=== PATIENT | female | born 1995 | race Caucasian/White ===

== ENCOUNTER 2017-03-19 03:26 | Inpatient (IN) | payer OTHER ==
--- NOTE | ~2017-03-19 | PA ---
Unit #: [id number] #: [id number] Patient: SID VEGAS [id number] [facility] [address] [place] [address] [id number] MR#: [id number] NAME: SID VEGAS ROOM: P201 Age: 22 Sex: F Admission Date: 03/19/2017 : 1995 Date of Assessment: 03/19/2017 Attending Physician: Yariel Miller M.D. Admitting Physician: Yariel Miller M.D. Primary Care Physician: Primary Care Physician No PSYCHIATRIC ASSESSMENT DATE OF SERVICE 03/19/2017. IDENTIFYING DATA Ms. Vegas is a 22-year-old single white female, who is a resident of [place], [place], and was brought to the hospital accompanied by her mother. CHIEF COMPLAINT "I overdosed on heroin last night." HISTORY OF PRESENT ILLNESS Ms. Vegas is a 22-year-old white female, who was brought to the hospital by her mother stating that she has been homeless, started to overdose on the heroin and that she overdosed on heroin last night, having to get medical attention and was Narcained and she felt that she needed help with her addiction to heroin and reports that she started to go to a rehab or chemical dependency treatment; however, she was unable to make it and continues to use heroin and ended up overdosing and was taken to the hospital and was given Narcan and was medically cleared and was in acute detox with a COWS score of 13 indicating significant withdrawal symptoms, and as such, a recommendation for inpatient level of care for chemical dependency treatment was made as the patient does report wanting to get help. The patient's mother reports that the patient does not like coming around when she is using heroin and that she has been sick due to her tooth issue and mother is concerned over the fact that the patient has been Narcained four times in the last 4 months due to constantly overdosing on heroin and appears to be a significant danger to self and therefore recommendation for inpatient level of care for safety and stabilization was made. The patient does report increasing depression, anxiety, irritability, restlessness, isolating herself, unable to function, and having significant consequences of her addiction and continues to overdose and goes into respiratory failure and having being Narcained 4 times in the last 4 months. SUBSTANCE ABUSE HISTORY The patient has an extensive history of substance abuse and dependence including alcohol, cannabis, cocaine, opioids, and benzodiazepines, and currently opioids, particularly IV heroin has been her drug of choice. She reports that she has been using a gram of IV heroin on a regular basis. PAST PSYCHIATRIC HISTORY The patient has had a history of chemical dependency treatment at Unit #: [id number] #: [id number] Patient: SID VEGAS different facilities, and review of the medical records indicate that currently she is not active in any treatment program, is not seeing a psychiatrist, and is not taking any psychotropic medications. PAST MEDICAL HISTORY Infection in her teeth. ALLERGIES Codeine. PERSONAL AND SOCIAL HISTORY A 22-year-old white female, who reports that she is single, unemployed, and currently describes herself to be homeless and has poor social support system. MENTAL STATUS EXAMINATION Young white female, who was casually dressed with fair personal hygiene, appears to be in no acute distress or discomfort. She was awake and alert on interaction with intact orientation to time, place, and person. Her mood was anxious and depressed with a congruent affect. Her speech was slow and restricted in content. Her thought processes were disorganized with some looseness of associations. She denies any current suicidal or homicidal ideations and also denies any auditory or visual hallucinations. Her insight and judgment remain significantly impaired. DIAGNOSTIC IMPRESSION Psychiatric: Opioid dependence, moderate, in acute withdrawals and opioid-induced mood disorder. Medical: Infection in her teeth. Stressors: Moderate psychosocial stressors. TREATMENT PLAN 1. The patient has presented with a history of mood disorder and substance abuse and has been decompensating and will need inpatient hospitalization for detoxification, safety, and stabilization. We will start her back on her home medications. We will adjust the medications and monitor response. 2. Supportive therapy was provided to the patient. 3. Safe, structured, and nourishing environment will be provided. ESTIMATED LENGTH OF STAY 5 to 7 days. ABILITY TO HELP SELF Limited. WILLINGNESS TO HELP SELF The patient appears to be willing to help self. STRENGTHS 1. Communicative. 2. Cooperative. PROBLEMS 1. Chronic chemical dependency. 2. Chronic dysphoric symptoms. 3. Poor social support system. DISCHARGE CRITERIA Unit #: [id number] #: [id number] Patient: SID VEGAS This will be contingent upon the patient's ability to go through detox without having any significant withdrawal symptoms and her ability to stay safe to herself, particularly after discharge from the hospital. Dictated by... Cristy Mcpherson/ray TD: 03/19/2017 13:44 JOB #: [id number] PSYCHIATRIC ASSESSMENT Page 1 of 1 X Yariel Miller MD X PSYCHIATRIC ASSESSMENT
--- NOTE | ~2017-03-19 | DS ---
Unit #: [id number] #: [id number] [facility]: [facility] VEGAS [id number] [facility] [place] [address] [id number] MR#: [id number] NAME: SID VEGAS ROOM: [facility] Age: 22 Sex: F Admission Date: 03/19/2017 : 1995 Discharge Date: 03/22/2017 Attending Physician: Yariel Miller M.D. Primary Care Physician: Primary Care Physician No DISCHARGE SUMMARY IDENTIFICATION DATA Ms. Vegas is a 22-year-old single white female who is a resident of [place], [place], and was brought to the hospital accompanied by her mother. DISCHARGE DIAGNOSES PSYCHIATRIC: Opioid dependence, moderate, in acute withdrawals. Opioid-induced mood disorder. MEDICAL: Infection in her teeth. STRESSORS: Moderate psychosocial stressors. HISTORY OF PRESENT ILLNESS Same as in initial psychiatric evaluation. PAST PSYCHIATRIC HISTORY Same as in initial psychiatric evaluation. PAST MEDICAL HISTORY Same as in initial psychiatric evaluation. HOSPITAL COURSE The patient was admitted to the adult chemical dependency unit at [facility] jonna Gilliam and was oriented to the hospital environment. Routine p.r.n. medications were initiated, and she was started on the detox protocol and was closely monitored. She was taking the medications regularly and was tolerating them fairly well and able to show decent therapeutic response and was willing to continue treatment on outpatient basis. As such it was decided that she will be discharged home. We will continue treatment on outpatient basis. DISCHARGE MEDICATIONS None. CONDITION AT DISCHARGE Stable. PROGNOSIS Fair. Dictated by... Yariel Miller M.D. Unit #: [id number] #: [id number] Patient: SID VEGAS IAA/bzg TD: 03/23/2017 09:54 JOB #: [id number] DISCHARGE SUMMARY Page 1 of 1 X Yariel Miller MD DISCHARGE SUMMARY
--- NOTE | ~2017-03-19 | HP ---
Unit #: [id number] #: [id number] Patient: SID POPE [id number] [facility] [address] [place] [address] [id number] I MR#: [id number] NAME: SID POPE ROOM: P201 Age: 22 Sex: F Admission Date: 03/19/2017 : 1995 Attending Physician: Yariel Miller M.D. Admitting Physician: Yariel Miller M.D. Primary Care Physician: Primary Care Physician No HISTORY AND PHYSICAL HISTORY OF PRESENT ILLNESS Sid is a 22 year old admitted to [address] [place] [address] because of her polysubstance abuse which includes IV heroin and benzodiazepines. PAST MEDICAL HISTORY Long history of illicit substance abuse to include IV heroin and benzodiazepines. PAST SURGICAL HISTORY Tubal ligation. ALLERGIES Codeine. SOCIAL HISTORY Smokes 1 pack per day. Drinks 6 pack of beer on a daily basis and admits to a history of illicit substance abuse to include IV heroin and abusing benzodiazepines. FAMILY HISTORY Medically noncontributory. REVIEW OF SYSTEMS CONSTITUTIONAL: No fever or chills. HEENT: Denies any sore throat, ear pain or runny nose. Patient reports a recent tooth extraction. She reports no complications at this time. CARDIOVASCULAR: Denies chest pain, irregular heart rhythm or palpitations. CHEST: Denies shortness of breath or cough. No hemoptysis. GASTROINTESTINAL: Denies nausea, vomiting, diarrhea or chronic constipation. ENDOCRINE: Denies history of increased thirst or urination. No recent significant weight loss or gain. GENITOURINARY: Denies dysuria, frequency, or hematuria. SKIN: Denies any rashes. HEMATOLOGIC: Denies history of increased bleeding or bruising. MUSCULOSKELETAL: Denies any hot, swollen joints. No generalized muscle pain. NEUROLOGIC: Denies problems with vision or speech. No frequent, severe headaches. No numbness, tingling or weakness in any extremities. Denies loss of bladder or bowel control. CURRENT MEDICATIONS Unit #: [id number] #: [id number] Patient: SID POPE 1. Detox protocol. 2. Cleocin 300 mg t.i.d. PHYSICAL EXAMINATION GENERAL: Alert, well-nourished, in no apparent distress. VITAL SIGNS: Blood pressure 100/50, heart rate 80, respirations 16, temperature 98.6. WEIGHT: 175. HEIGHT: 5 feet 5 inches. SKIN: Warm and dry without rash or lesion. HEENT: Normocephalic. TMs not viewed. Oral and nasal passages clear. Conjunctivae clear. PERRLA. EOMs intact. NECK: Supple without lymphadenopathy or thyromegaly. HEART: Regular rate and rhythm without murmur. LUNGS: Clear. ABDOMEN: Soft, nontender. : Not done. EXTREMITIES: No evidence of cyanosis, clubbing or edema. Moves all without focal deficit. NEUROLOGICAL: Grossly within normal limits. Cranial Nerves: II: Visual hdez are intact. III, IV AND : Extraocular movements are intact. Pupils are equal, round and reactive to light. V: Facial sensation is grossly normal. VII: Facial movements and expression are normal. VIII: Auditory acuity grossly intact. IX, X: Uvula is midline. Phonation is normal. XI: Patient shrugs shoulders and turns head normally. XII: Tongue protrudes in the midline. Sensory and Motor Function: Sensory and motor sensation is grossly normal. Motor: moves all extremities well. Coordination: Gait is normal. Deep Tendon Reflexes: Intact. IMPRESSION Psychiatric admission. RECOMMENDATIONS PSYCHIATRIC: Per psychiatrist. MEDICAL: See no contraindications to participate in facility's activities. MEDICAL PROGNOSIS Good. MEDICAL CONDITION Stable. Dictated by... Kalpana Eddy POnealASuad. for Cristy Lynn/karley TD: 03/19/2017 18:24 JOB #: [id number] Unit #: [id number] #: [id number] Patient: SID POPE HISTORY AND PHYSICAL Page 1 of 1 X Kalpana Eddy HISTORY AND PHYSICAL
--- NOTE | ~2017-03-19 | PN ---
Unit #: [id number] #: [id number] Patient: SID VEGAS [id number] [facility] [address] [place] [address] [id number] MR#: [id number] NAME: SID VEGAS ROOM: P201 Age: 22 Sex: F Admission Date: 03/19/2017 : 1995 Attending Physician: Yariel Miller M.D. Admitting Physician: Yariel Miller M.D. Primary Care Physician: Primary Care Physician Rin SÁNCHEZ NOTES DATE OF SERVICE 03/21/2017 DISCUSSION Ms. Vegas is a 22-year-old white female who was seen today. Chart was reviewed and case was discussed with the staff. She has been doing fairly well and seems to be coming out of the detox without any complications and is hoping to go to long-term rehab level of care. MENTAL STATUS EXAMINATION Young white female who is casually dressed with fair personal hygiene, appears to be in no acute distress or discomfort. She was awake and alert on interaction with intact orientation. Her mood is anxious with congruent affect. She denies any suicidal or homicidal ideations. Her insight and judgment remain slightly impaired. TREATMENT PLAN We will continue her on her current medications and treatment protocol. We will monitor her response to the medications and make further adjustments as needed. Dictated by... Yariel Miller M.D. IAA/bzg TD: 03/21/2017 12:53 JOB #: [id number] [facility] PROGRESS NOTES Page 1 of 1 X Yariel Miller MD X PROGRESS NOTE
--- NOTE | ~2017-03-19 | PN ---
Unit #: [id number] #: [id number] Patient: SID VEGAS [id number] [facility] [address] [place] [address] [id number] I MR#: [id number] NAME: SID VEGAS ROOM: P201 Age: 22 Sex: F Admission Date: 03/19/2017 : 1995 Attending Physician: Yariel Miller M.D. Admitting Physician: Yariel Miller M.D. Primary Care Physician: Primary Care Physician Rin SÁNCHEZ NOTES DATE March 20, 2017 DISCUSSION Ms. Vegas is a 22-year-old white female, with substance abuse and mood disorder, who was seen today and chart was reviewed and the case was discussed with the staff. The patient has been anxious, withdrawn, and rather seclusive to herself. Meanwhile, she has been showing poor insight and motivation towards treatment and has been wanting to sign herself out, however, she has not shown any agitation or aggression. MENTAL STATUS EXAMINATION Young white female, who was casually dressed with fair personal hygiene and appears to be in no acute distress or discomfort. The patient was awake and alert on interaction with intact orientation. Her mood was anxious with a congruent affect. The patient denies any suicidal or homicidal ideations. Her insight and judgment remain slightly impaired. TREATMENT PLAN 1. We will continue her on her current medications and treatment protocol, and will monitor her response to the medications, and make further adjustments as needed. 2. We will continue to followup. Dictated by... Cristy Mcpherson/marcy TD: 03/20/2017 09:38 JOB #: [id number] Unit #: [id number] #: [id number] Patient: SID VEGAS DIMITRIDARIUSZ PROGRESS NOTES Page 1 of 1 X Yariel Miller MD PROGRESS NOTE
[2017-03-19 09:49] LABS: BASOPHIL% 0.5 % (0-2.5); DIFF IND NO; EOSINOPHIL# 0.2 X10e3 (0-0.7); EOSINOPHIL% 2.3 % (0.0-7.0); HEMATOCRIT 38.7 % (35.0-45.0); LYMPHOCYTE# 3.4 X10e3 (1.0-3.5); LYMPHOCYTE% 44.9 % (17.0-45.0); MEAN CORPUSCULAR HEMOGLOBIN 28.8 PG (28-34); MEAN CORPUSCULAR HGB CONC 33.5 g/dL (30-36); MEAN PLATELET VOLUME 9.7 FL (6.5-11.5); MONOCYTE# 0.4 X10e3 (0-1.0); MONOCYTE% 5.4 % (3.0-12.0); NEUTROPHIL# 3.6 X10e3 (1.5-7.1); NEUTROPHIL% 46.9 % (40-75); PLATELET COUNT 216 X10e3 (140-420); RED CELL DISTRIBUTION WIDTH 13.3 % (11.0-15.5); WHITE BLOOD COUNT 7.6 X10e3 (4.0-10.5)
[2017-03-19 10:34] LABS: ALBUMIN SERUM 3.4 g/dL (3.5-5.0); BILIRUBIN,TOTAL 0.6 mg/dL (0.2-2.0); BUN/CREATININE RATIO 13.33; CALCIUM SERUM 8.9 mg/dL (8.4-10.2); CREATININE SERUM 0.6 mg/dL (0.6-1.4); GLOM FILT RATE Estimated 127.6 mL/min (>60); POTASSIUM 3.7 mmol/L (3.5-5.1); PROTEIN TOTAL SERUM 6.4 g/dL (6.0-8.3)
[2017-03-20 09:40] LABS: URINE APPEARANCE CLEAR; URINE BLOOD NEG (NEG); URINE COLOR DK YELLOW; URINE GLUCOSE NEG (NEG); URINE KETONE NEG (NEG); URINE LEUKOCYTE ESTERASE TRACE (NEG); URINE NITRATE NEG (NEG); URINE PH 6.5 (5-8); URINE PROTEIN TRACE (NEG); URINE SPECIFIC GRAVITY 1.017 (1.003-1.035)
[2017-03-20 09:44] LABS: URINE BACTERIA AUWI 3+ (NEGATIVE); URINE SQUAMOUS EPITHELIAL CELL MOD /[HPF]
[2017-03-20 10:00] LABS: URINE BILIRUBIN NEG (NEG)
[2017-03-20 10:04] LABS: U HYALINE CASTS AUWI 0-2 /[LPF]; URBCS1 AUWI NEG /[HPF] (0-2)
[2017-03-20 10:05] LABS: URINE YEAST PRESENT
[2017-03-20 10:41] LABS: AMPHETAMINE NEG (NEG); BARBITURATES NEG (NEG); BENZODIAZEPINES POS (NEG); COCAINE NEG (NEG); MARIJUANA POS (NEG); OPIATES POS (NEG); TRICYCLIC ANTIDEPRESSANTS NEG (NEG); U METHADONE NEG (NEG)
[2017-03-26 21:22] LABS: HA AB IGM (HEPPAN) Nonreactive (()); HB CORE AB IGM (HEPPAN) Nonreactive (Nonreactive); HB S AG (HEPPAN) Nonreactive (Nonreactive); HEP C AB (HEPPAN) Reactive (Nonreactive)
== END 2017-03-22 11:00 | disposition home or self-care (01) | DRG 897 ==
LOC: P2S 03:26
PROVIDERS: Psychiatry & Neurology Psychiatry
PROC: HZ2ZZZZ Detoxification Services for Substance Abuse Treatment (ICD-10-PCS; principal; 2017-03-19)
DX: F11.23 Opioid dependence with withdrawal (principal); F11.24 Opioid dependence with opioid-induced mood disorder; F13.10 Sedative, hypnotic or anxiolytic abuse, uncomplicated; K04.7 Periapical abscess without sinus; Z59.0 Homelessness; Z88.5 Allergy status to narcotic agent; Z98.51 Tubal ligation status; F17.210 Nicotine dependence, cigarettes, uncomplicated
CPT/HCPCS: 80053; 80074; 80307; 81003; 84703; 85025; 86592; 87522; 87806